=== PATIENT | male | born 1980 | race Two or more races ===

== ENCOUNTER → 2025-07-22 | Emergency (ER) | payer OTHER ==
[~2025-07-22] VITALS: Ht 175.3 cm; Wt 114.8 kg
[~2025-07-22] MED LIST: 0.9 % SODIUM CHLORIDE 1,000 ML IV STA; CARDURA XL4 MG; DIOVAN40 MG; EZALLOR SPRINKL40 MG; FAMOTIDINE/PF 20 MG/2 ML VIAL IV STA; FAMOTIDINE/PF 20 MG/2 ML VIAL ONE; HYDRALAZINE HCL10 MG; INSULIN REGULAR, HUMAN 1,000 UNIT/10 ML UNITS IV ONE; INSULIN REGULAR, HUMAN 1,000 UNIT/10 ML UNITS IV STA; METFORMIN HCL500 MG PO; MONTELUKAST SODI4 M1; NIFEDIPINE20 MG; ONDANSETRON HCL 2 MG/ML VIAL IV STA; ONDANSETRON HCL 2 MG/ML VIAL ONE; PLAVIX75 MG
[2025-07-22 20:40] VITALS: BP 130/65; O2SAT 96
[2025-07-22 22:11] LABS: BASO % 1.2 % (0.1-1.2); EOS # 0.19 (0.04-0.54); EOS % 3.3 % (0.7-7.0); LYMPH # 2.04 (1.18-3.74); LYMPH % 35.6 % (19.3-53.1); MEAN PLATELET VOLUME 12.90 fl (9.4-12.4); MONO # 0.49 (0.24-0.82); MONO % 8.6 % (4.7-12.5); NEUT # 2.93 (1.56-6.13); NEUT % 51.1 % (34.0-71.1); RED CELL DISTRIBUTION WIDTH 12.4 % (11.6-14.4)
[2025-07-22 22:41] LABS: BUN CREA RATIO 16.0 (7.0-25.0); CREATININE SERUM 0.74 mg/dL (0.70-1.30); GFR 115.99; OSMOLALITY SERUM 280.0 MOSM/KG (275-295)
[2025-07-22 22:43] LABS: GLUCOSE FASTING 287.0 mg/dL (65-100)
[2025-07-22 23:52] LABS: URINE APPEARANCE Clear; URINE BILIRRUBIN Negative (NEGATIVE); URINE BLOOD Negative; URINE COLOR Yellow; URINE LEUKOCYTE Negative; URINE NITRATE Negative; URINE PROTEIN Negative (NEGATIVE); URINE UROBILINOGEN 0.2 E.U./dl
[2025-07-22 23:56] LABS: URINE BACTERIA 45.7 uL (0.0-1933); URINE EPITHELIAL CELLS 2.7 uL (0.0-38.8); URINE WBC 2.8 uL (0.0-23.2)
[2025-07-23 00:03] LABS: URINE CAST 0.28 uL (0.0-1.40); URINE GLUCOSE >=1000 MG/DL (NEGATIVE); URINE KETONE 80 (NEGATIVE); URINE RBC 1.2 uL (0.0-20.8)
== END | disposition home or self-care (01) ==
LOC: ER 20:01
PROVIDERS: General Practice
DX: E11.65 Type 2 diabetes mellitus with hyperglycemia (principal); Z79.84 Long term (current) use of oral hypoglycemic drugs; I10 Essential (primary) hypertension; G47.39 Other sleep apnea; Z87.09 Personal history of other diseases of the respiratory system